=== PATIENT | male | born 1955 | race Caucasian/White ===

== ENCOUNTER 2020-02-24 06:04 | Emergency (ER) | payer BC ==
[~2020-02-24] VITALS: Ht 177.8 cm; Wt 68.0 kg
[2020-02-24 06:15] VITALS: BP 146/87
--- NOTE | 2020-02-24 06:15 | NUR ---
ED Nurse Note: walked in to ed c/o headache onset 5 hrs ago. pt states hx migraine. denies trauma to head. vss, nad, aaox4, ambulatory.
[2020-02-24] MEDS ORDERED: HYDROcodone/Acetamin 5/325 tab ORAL ONE (07:00)
[2020-02-24] MEDS ORDERED: REGLAN10 MG ORAL (07:37)
[2020-02-24] MEDS ORDERED: FIORICET1 EA ORAL (07:37)
[2020-02-24 07:40] VITALS: BP 141/82
--- NOTE | 2020-02-24 07:40 | NUR ---
ED Nurse Note: Pt cleared by health care Provider for discharge. DC instructions/prescription was given and explained to pt and verbalized understanding of teachings. All medical deviecs such as ID band removed. Pt is AAO x4, ambulatory and left with all personal belongings.
--- NOTE | 2020-02-24 09:41 | Emergency Room Report ---
History of Present Illness General Chief Complaint: Headache Source: Patient Present Illness HPI 64-year-old male presents for evaluation. Complaining of headache for the last 5 days. Throbbing, 7 out of 10, radiating to the sides. Denies photophobia or blurry vision. Denies nausea or vomiting. Denies neck stiffness. History of migraines. States marijuana typically helps. No other aggravating relieving factors. Denies any other associated symptoms Allergies: Coded Allergies: No Known Allergies (Unverified , 02/24/20) COVID-19 Screening Contact w/high risk pt: No Experienced COVID-19 symptoms?: No COVID-19 Testing performed [employer]PER[employer] HELPER: No Patient History Past Medical History: HTN Past Surgical History: none Pertinent Family History: none Social History: Denies: smoking, alcohol use, drug use Immunizations: UTD Reviewed Nursing Documentation: PMH: Agreed; PSxH: Agreed Nursing Documentation-PMH Hx Hypertension: Yes Review of Systems All Other Systems: negative except mentioned in HPI Physical Exam Vital Signs Date Time Temp Pulse Resp B/P (MAP) Pulse Ox O2 Delivery O2 Flow Rate FiO2 02/24/20 06:13 97.9 88 16 146/87 (106) 98 Room Air Sp02 EP Interpretation: reviewed, normal General Appearance: no apparent distress, alert, GCS 15, non-toxic Head: normocephalic, atraumatic Eyes: bilateral eye normal inspection, bilateral eye PERRL ENT: hearing grossly normal, normal pharynx, no angioedema, normal voice Neck: full range of motion, supple/symm/no masses Respiratory: chest non-tender, lungs clear, normal breath sounds, speaking full sentences Cardiovascular #1: regular rate, rhythm, no edema Cardiovascular #2: 2+ carotid (R), 2+ carotid (L), 2+ radial (R), 2+ radial (L), 2+ dorsalis pedis (R), 2+ dorsalis pedis (L) Gastrointestinal: normal bowel sounds, non tender, soft, non-distended, no guarding, no rebound Rectal: deferred Genitourinary: normal inspection, no CVA tenderness Musculoskeletal: back normal, normal range of motion, gait/station normal, non- tender Neurologic: alert, motor strength/tone normal, wheel truing machine tender III-XII nml as tested, oriented x3, sensory intact, responsive, speech normal Psychiatric: judgement/insight normal, memory normal, mood/affect normal, no suicidal/homicidal ideation Reflexes: 3+ bicep (R), 3+ bicep (L), 3+ tricep (R), 3+ tricep (L), 3+ knee (R), 3+ knee (L) Skin: no rash Lymphatic: no adenopathy Medical Decision Making Diagnostic Impression: Primary Impression: Headache Qualified Codes: R51.9 - Headache, unspecified ER Course Hospital Course 64-year-old male presents with headache. History of migraine Differential diagnoses include: tension headache, migraine, dehydration, intracranial bleed Clinical course Patient placed on stretcher. After initial history and physical I ordered Reg mervat, [place], ibuprofen On reassessment headache improved. Discussed findings with patient. No focal deficits. Safe for discharge with close outpatient follow-up. Does not have a PMD. I will provide referrals i. I feel this is a highly complex case requiring extensive working including EKG/Rhythm strip, Xray/CT/US, Blood/urine lab work, repeat exams while in ED, and administration of strong opiates/narcotics for pain control, admission to hospital or close patient follow up. Diagnosis - headache stable and discharged to home. f/up with PMD. return to ED if symptoms recur/worsen. Last Vital Signs Date Time Temp Pulse Resp B/P (MAP) Pulse Ox O2 Delivery O2 Flow Rate FiO2 02/24/20 07:44 97.9 02/24/20 07:40 76 16 141/82 99 Room Air Status: unchanged Disposition: HOME, SELF-CARE Condition: Stable Scripts Acetamin/Butalbital/Caffeine* (FIORICET*) 1 Ea Tab 1 TAB ORAL Q6H, #15 TAB 0 Refills Prov: Lauri Dunaway MD 02/24/20 Metoclopramide Hcl* (REGLAN*) 10 Mg Tablet 10 MG ORAL THREE TIMES A DAY, #15 TAB Prov: Lauri Dunaway MD 02/24/20 Referrals: [facility] Patient Instructions: Migraine Headache Lauri Dunaway MD Feb 24, 2020 09:41
== END 2020-02-24 07:40 | disposition home or self-care (01) ==
LOC: EMR 07:29
DX: R51.9 Headache, unspecified (principal); I10 Essential (primary) hypertension; F12.90 Cannabis use, unspecified, uncomplicated
CPT/HCPCS: 99282